=== PATIENT | female | born 1960 | race Caucasian/White ===

== ENCOUNTER 2016-11-14 23:36 | Emergency (ER) | payer OTHER ==
[2016-11-14 23:46] VITALS: BMI 26.6
--- NOTE | 2016-11-15 00:07 | PDOC ---
History of Present Illness - History of Present Illness Initial Comments: 11/15/16 00:42 The patient is a 56 year old female, with a significant past medical history of diabetes (Metformin), GERD, colon polyps, UTI, renal stones, herniated discs, sciatica, and anxiety (Klonopin), who presents to the emergency department with suprapubic pain since this morning. The patient states she woke up feeling sharp pain to her suprapubic region. She reports the pain radiates from her left lower back and feels like a stone. The patient reports hesitancy with urination, stating she feels she needs to push, but denies dysuria. The patient states she though the radiating pain from her back was her sciatica because she also reports experiencing bilateral lower extremity numbness and tingling, predominantly at the lateral aspects of her bilateral hips and feet, which she states is baseline for her sciatica. She denies chest pain, shortness of breath, headache and dizziness. She denies fever, chills, nausea, vomit, diarrhea and constipation. She denies dysuria, frequency, urgency and hematuria. Allergies: NKDA Social history: denies toxic habits PCP - Dr. Pratt ([facility]) <Aleksandra Varma - Last Filed: 11/15/16 00:42> <Joo Lima - Last Filed: 11/15/16 01:51> <Quita Torres - Last Filed: 11/15/16 22:57> - General Chief Complaint: Pain Stated Complaint: ABD PAIN Time Seen by Provider: 11/15/16 00:06 Past History <Aleksandra Varma - Last Filed: 11/15/16 00:42> - Psycho/Social/Smoking Cessation Hx Suicidal Ideation: No Smoking History: Never smoked Have you smoked in the past 12 months: No Information on smoking cessation initiated: No Hx Alcohol Use: No Drug/Substance Use Hx: No <Joo Lima - Last Filed: 11/15/16 01:51> <Quita Torres - Last Filed: 11/15/16 22:57> - Past Medical History Allergies/Adverse Reactions: Allergies Allergy/AdvReac Type Severity Reaction Status Date / Time No Known Allergies Allergy Verified 11/14/16 23:42 Home Medications: Ambulatory Orders Cholecalciferol (Vitamin D3) [Vitamin D -] 1,000 mg PO DAILY 11/15/16 Clonazepam [KlonoPIN] 2 mg PO BID 11/15/16 Duloxetine HCl [Cymbalta] 60 mg PO BID 11/15/16 Fenofibrate Nanocrystallized [Fenofibrate] 145 mg PO DAILY 11/15/16 Metformin HCl 1,000 mg PO DAILY 11/15/16 Nitrofurantoin Monohyd/M-Cryst [Macrobid -] 100 mg PO BID #14 capsule 11/15/16 Ranitidine HCl 150 mg PO BID 11/15/16 Topiramate 25 mg PO DAILY 11/15/16 Review of Systems - Review of Systems Able to Perform ROS?: Yes Comments:: 11/15/16 00:43 CONSTITUTIONAL: No fever, no chills, no fatigue EYES: No visual changes ENT: No ear pain, no sore throat CARDIOVASCULAR: No chest pain, no palpitations RESPIRATORY: No cough, no SOB GI: (+) suprapubic abdominal pain, no nausea, no vomiting, no constipation, no diarrhea GENITOURINARY: (+) Pressure upon urination. Left flank pain. No dysuria, no frequency, no hematuria MUSKULOSKELETAL: No backpain, no joint pain, no myalgias SKIN: No rash NEURO: No headache <Aleksandra Varma - Last Filed: 11/15/16 00:42> *Physical Exam - Vital Signs Last Vital Signs Temp Pulse Resp BP Pulse Ox 98.7 F 94 H 14 154/106 96 11/14/16 23:43 11/14/16 23:43 11/14/16 23:43 11/14/16 23:43 11/14/16 23:43 - Physical Exam Comments: 11/15/16 00:43 CONSTITUTIONAL: Well-appearing; well-nourished; in no apparent distress HEAD: Normocephalic; atraumatic EYES: PERRL; EOM intact ENMT: External appears normal; normal oropharynx NECK: Supple; non-tender; no cervical lymphadenopathy CARD: Normal S1, S2; no murmurs, rubs, or gallops RESP: Normal chest excursion with respiration; breath sounds clear and equal bilaterally; no wheezes, rhonchi, or rales ABD: (+) suprapubic tenderness to palpation. Soft, non-distended; no palpable organomegaly, no palpable hernias; MUSC: No CVA tenderness EXT: Normal ROM in all four extremities; non-tender to palpation; distal pulses intact SKIN: Warm, dry, no rash NEURO: No focal neurological deficiencies. <Aleksandra Varma - Last Filed: 11/15/16 00:42> - Vital Signs Last Vital Signs Temp Pulse Resp BP Pulse Ox 98.7 F 94 H 14 154/106 96 11/14/16 23:43 11/14/16 23:43 11/14/16 23:43 11/14/16 23:43 11/14/16 23:43 <Joo Lima - Last Filed: 11/15/16 01:51> - Vital Signs Last Vital Signs Temp Pulse Resp BP Pulse Ox 97.9 F 77 18 151/88 99 11/15/16 04:35 11/15/16 04:35 11/15/16 04:35 11/15/16 04:35 11/15/16 04:35 <Quita Torres - Last Filed: 11/15/16 22:57> ED Treatment Course - LABORATORY CBC & Chemistry Diagram: 11/15/16 00:30 11/15/16 00:30 <Joo Lima - Last Filed: 11/15/16 01:51> - LABORATORY CBC & Chemistry Diagram: 11/15/16 00:30 11/15/16 00:30 - ADDITIONAL ORDERS Additional order review: Laboratory Results 11/15/16 11/15/16 11/15/16 00:30 00:30 00:30 INR 0.95 Sodium 137 Potassium 4.6 Chloride 106 Carbon Dioxide 20 L Anion Gap 11 BUN 25 H Creatinine 1.2 H Creat Clearance w eGFR 46.82 Random Glucose 180 H Calcium 9.8 Total Bilirubin 0.3 AST 16 ALT 29 Alkaline Phosphatase 137 H Total Protein 7.4 Albumin 4.2 Urine Color Yellow Urine Appearance Clear Urine pH 5.0 Urine Protein Negative Urine Glucose (UA) 3+ H Urine Ketones Trace H Urine Blood 1+ H Urine Nitrite Negative Urine Bilirubin Negative Urine Urobilinogen Negative Ur Leukocyte Esterase Negative Urine RBC 2 Urine WBC <1 Hyaline Casts 3 Urine Mucus Rare 11/15/16 00:30 RBC 4.73 MCV 85.5 MCHC 32.7 RDW 14.3 MPV 10.9 Neutrophils % 90.6 H Lymphocytes % 7.4 L Monocytes % 1.8 L Eosinophils % 0.0 Basophils % 0.2 - Medications Given in the ED: ED Medications Discontinued Medications Generic Name Dose Route Start Last Admin Trade Name Al PRN Reason Stop Dose Admin Sodium Chloride 1,000 mls @ 1,000 mls/hr 11/15/16 00:17 11/15/16 00:53 Normal Saline - IV 11/15/16 01:16 1,000 mls/hr ASDIR STA Administration Morphine Sulfate 4 mg 11/15/16 00:17 11/15/16 00:53 Morphine Injection - IVPUSH 11/15/16 00:18 4 mg ONCE ONE Administration Morphine Sulfate 2 mg 11/15/16 03:02 11/15/16 03:09 Morphine Injection - IVPUSH 11/15/16 03:03 2 mg ONCE ONE Administration <Quita Torres - Last Filed: 11/15/16 22:57> Medical Decision Making - Medical Decision Making 11/15/16 01:51 Patient is well-appearing 56-year-old female with multiple Vladimir's who presents with atraumatic suprapubic and left lower quadrant pain. There is no CVA tenderness. Patient is neurovascularly intact distally to lower extremities bilaterally. Differential diagnoses includes cystitis versus diverticulitis versus pyelonephritis versus nephrolithiasis. CBC shows mild leukocytosis with predominance of neutrophils. CMP is within normal limit. Urinalysis reveals no evidence of microscopic hematuria. Will obtain CT with by mouth contrast only. Will endorse to Dr. torres for final disposition. <Joo Lima - Last Filed: 11/15/16 01:51> - Medical Decision Making 11/15/16 05:06 Patient Name: Ritika Rasmussen THIS IS A PRELIMINARYREPORT FROM IMAGING ENROLLMENT NURSE EXAM: CT abdomen and pelvis without contrast IMAGES: [id number] INDICATION: Left lower quadrant pain. Blood diverticulitis. DATE OF SERVICE: 2016-11-15 04:24: 39.0 COMPARISON: none FINDINGS: Lung bases are clear. The visualized cardiac chambers are normal size and configuration. There is a tiny nonobstructing left renal stone. Normal liver, gallbladder, pancreas, spleen, adrenal glands and right kidney. The stomach and abdominal small and large bowel are normal. A moderate to large amount of diffuse solid stool is noted. There is no aortic aneurysm. There is no significant retroperitoneal lymphadenopathy. The pelvic small and large bowel are normal. The appendix is normal. Status post hysterectomy. Urinary bladder is unremarkable. There is no pelvic free fluid. No discrete pelvic lymphadenopathy is identified. IMPRESSION: Tiny nonenhancing left renal stone. Moderate to large amount of diffuse solid stool. No definite acute pathology. THIS DOCUMENT HAS BEEN ELECTRONICALLY SIGNED 11/15/16 22:56 Pt comes with suprapubic pain; she has multiple comorbidities. CT shows only small renal stones. Her UA is not fully consistent with a UTI, but I will treat a UTI, as she has DM and she has stones, and she has tenderness. So I will treat with a week of macrobid. Pt is anxious and she will be discharged home with her daughter. <Quita Torres - Last Filed: 11/15/16 22:57> *DC/Admit/Observation/Transfer - Attestations Scribe Attestion: 11/15/16 00:45 Documentation prepared by Aleksandra Varma, acting as medical radiation tech for Joo Lima MD <Aleksandra Varma - Last Filed: 11/15/16 00:42> - Attestations Physician Attestion: 11/15/16 01:51 The documentation was prepared by the scribe under my direct supervision. I have reviewed the documentation which correctly represents the findings, medical decision-making and critical action taken by me. <Joo Lima - Last Filed: 11/15/16 01:51> - Discharge Dispostion Admit: No <Quita Torres - Last Filed: 11/15/16 22:57> Diagnosis at time of Disposition: UTI (urinary tract infection), Kidney stones - Discharge Dispostion Disposition: HOME Condition at time of disposition: Stable - Prescriptions Prescriptions: Nitrofurantoin Monohyd/M-Cryst [Macrobid -] 100 mg PO BID #14 capsule - Referrals Referrals: Tc Ngo MD [Primary Care Provider] - - Patient Instructions Printed Discharge Instructions: Urinary Tract Infection, Kidney Stones -- Adult , DI for Constipation
[2016-11-15] MEDS ORDERED: SODIUM CHLORIDE 1,000 ML IV STA (00:17)
[2016-11-15] MEDS ORDERED: morphine CARPU-JECT 4 MG/1 ML DISP.SYRIN IVPUSH ONE (00:17)
[2016-11-15] MEDS ORDERED: morphine CARPU-JECT 4 MG/1 ML DISP.SYRIN ONE (00:42)
[2016-11-15 00:56] LABS: BASOPHIL 0.2 % (0-2.0); MCHC 32.7 g/dl (32.0-36.0); MEAN CELL VOLUME 85.5 fl (80-96); MEAN PLT VOLUME 10.9 fl (7.5-11.1); NEUTROPHILS 90.6 % (42.8-82.8); PLATELET COUNT 206 K/MM3 (134-434); RDW 14.3 % (11.6-15.6); WHITE BLOOD COUNT 12.8 K/mm3 (4.0-10.0)
[2016-11-15 00:59] LABS: URINE APPEARANCE CLEAR; URINE BILIRUBIN NEGATIVE (NEGATIVE); URINE COLOR YELLOW; URINE GLUCOSE (UA) 3+ (NEGATIVE); URINE KETONE TRACE (NEGATIVE); URINE LEUK ESTERASE NEGATIVE (NEGATIVE); URINE NITRITE NEGATIVE (NEGATIVE); URINE PROTEIN NEGATIVE (NEGATIVE); URINE UROBILINOGEN NEGATIVE E.U./dl (0.2-1.0)
[2016-11-15 01:13] LABS: INR 0.95 (0.82-1.09); PROTHROMBIN TIME (PATIENT) 10.4 SEC (9.98-11.88); URINE BLOOD 1+ (NEGATIVE)
[2016-11-15 01:14] LABS: URINE HYALINE CAST 3 /lpf; URINE MUCUS RARE; URINE RBC 2 /hpf (0-3); URINE WBC <1 /hpf (3-5)
[2016-11-15 01:20] LABS: ALBUMIN 4.2 g/dl (3.4-5.0); BILIRUBIN,TOTAL 0.3 mg/dL (0.2-1.0); CALCIUM 9.8 mg/dL (8.5-10.1); COCKROFT - GAULT 61.3955; CREATININE 1.2 mg/dL (0.55-1.02); TOT PROT 7.4 g/dl (6.4-8.2)
[2016-11-15] MEDS ORDERED: morphine CARPU-JECT 2 MG/1 ML DISP.SYRIN IVPUSH ONE (03:02)
[2016-11-15] MEDS ORDERED: morphine CARPU-JECT 2 MG/1 ML DISP.SYRIN ONE ×2 (03:03→03:12)
[2016-11-15 04:47] VITALS: BP 151/88; PULSE 77; TEMP 97.9
[2016-11-15] MEDS ORDERED: KETOROLAC TROMETHAMINE 30 MG/1 ML VIAL IVPUSH ONE (05:40)
[2016-11-15] MEDS ORDERED: NITROFURANTOIN MACROCRYSTAL 50 MG CAPSULE (FP) PO SCH (05:45)
[2016-11-15] MEDS ORDERED: KETOROLAC TROMETHAMINE 30 MG/1 ML VIAL ONE (05:51)
[2016-11-15] MEDS ORDERED: NITROFURANTOIN MACROCRYSTAL 50 MG CAPSULE (FP) ONE (05:52)
== END 2016-11-15 06:07 | disposition home or self-care (01) ==
LOC: JER 23:36
PROC: 3E033NZ Introduction of Analgesics, Hypnotics, Sedatives into Peripheral Vein, Percutaneous Approach (ICD-10-PCS; principal; 2016-11-14)
PROC: 3E0333Z Introduction of Anti-inflammatory into Peripheral Vein, Percutaneous Approach (ICD-10-PCS; 2016-11-14)
PROC: 3E033NZ Introduction of Analgesics, Hypnotics, Sedatives into Peripheral Vein, Percutaneous Approach (ICD-10-PCS; 2016-11-14)
DX: N39.0 Urinary tract infection, site not specified (principal); Z87.442 Personal history of urinary calculi; E11.9 Type 2 diabetes mellitus without complications; Z79.84 Long term (current) use of oral hypoglycemic drugs; F41.9 Anxiety disorder, unspecified; K21.9 Gastro-esophageal reflux disease without esophagitis
CPT/HCPCS: 36415; 74176-TC; 80053; 81003; 81015; 85025; 85610; 87086; 96374; 96375; 99282-25

== ENCOUNTER 2017-08-15 15:33 | Emergency (ER) | payer OTHER ==
[2017-08-15 16:27] VITALS: BMI 27.4
--- NOTE | 2017-08-15 16:45 | PDOC ---
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 She was at her job in [email or web address] and slipped on some perfume behind the counter and did a "split" at which point she feels she "tore something in her left groin" and hurt her neck, lower back, and left leg. She feels as if her sciatic symptoms were acutely exacerbated. Denies any bowel or bladder incontinence but complains of shooting pain down her left leg. Is unsure of any head trauma but did not lose consciousness. She does have a generalized headache. she denies visual symptoms, chest pain, OB, nausea, vomiting, or diarrhea. She is being seen by a pain specialist and wants to fire him because she disagrees regarding her care. She has history of multiple MSK traumas and currently is wearing a brace on her right lower leg. 08/15/17 18:39 <Lv Briones - Last Filed: 08/15/17 18:55> - General Chief Complaint: Injury Stated Complaint: FALL Time Seen by Provider: 08/15/17 16:15 Past History <RicardoNehalwinston Roberts - Last Filed: 08/15/17 17:15> - Past Medical History COPD: No Diabetes: Yes Hypercholesterolemia: Yes - Suicide/Smoking/Psychosocial Hx Smoking History: Former smoker Have you smoked in the past 12 months: No Information on smoking cessation initiated: No Hx Alcohol Use: No Drug/Substance Use Hx: No <Lv Briones - Last Filed: 08/15/17 18:55> - Past Medical History Allergies/Adverse Reactions: Allergies Allergy/AdvReac Type Severity Reaction Status Date / Time epinephrine AdvReac Verified 08/15/17 15:59 Home Medications: Ambulatory Orders Cholecalciferol (Vitamin D3) [Vitamin D -] 1,000 mg PO DAILY 11/15/16 Duloxetine HCl [Cymbalta] 60 mg PO BID 11/15/16 Metformin HCl 1,000 mg PO DAILY 11/15/16 Ranitidine HCl 150 mg PO BID 11/15/16 Topiramate 25 mg PO DAILY 11/15/16 clonazePAM [KlonoPIN] 2 mg PO BID 11/15/16 Ibuprofen 600 mg PO TID PRN #60 tablet MDD 3 01/01/17 Review of Systems - Review of Systems Constitutional: Yes: Weakness. No: Diaphoresis, Fever, Loss of Appetite, Malaise HEENTM: No: Blurred Vision, Tearing Respiratory: No: Cough, Orthopnea, Shortness of Breath, SOB with Exertion Cardiac (ROS): No: Chest Pain, Irregular Heart Rate, Lightheadedness ABD/GI: No: Diarrhea, Nausea, Vomiting : No: Burning, Dysuria, Discharge Musculoskeletal: Yes: Back Pain, Joint Pain, Muscle Pain, Neck Pain Integumentary: No: Bruising, Lesions Neurological: Yes: Headache, Paresthesia Psychiatric: Yes: Anxiety, Frequent Crying, Stressors, Emotional Problems, Mood Swings <Lv Briones - Last Filed: 08/15/17 18:55> *Physical Exam - Vital Signs Last Vital Signs Temp Pulse Resp BP Pulse Ox 98.7 F 81 20 154/107 97 08/15/17 16:00 08/15/17 16:00 08/15/17 16:00 08/15/17 16:00 08/15/17 16:00 <Nehal Silva - Last Filed: 08/15/17 17:15> - Vital Signs Last Vital Signs Temp Pulse Resp BP Pulse Ox 98.7 F 81 20 154/107 97 08/15/17 16:00 08/15/17 16:00 08/15/17 16:00 08/15/17 16:00 08/15/17 16:00 - Physical Exam General Appearance: Yes: Nourished, Appropriately Dressed, Apparent Distress, Mild Distress HEENT: positive: EOMI, RICH, Normal ENT Inspection, Normal Voice, Symmetrical Neck: positive: Other (In C collar because of neck pain after the fall) Respiratory/Chest: positive: Lungs Clear, Normal Breath Sounds. negative: Chest Tender, Respiratory Distress, Accessory Muscle Use Cardiovascular: positive: Regular Rhythm, Regular Rate Gastrointestinal/Abdominal: positive: Normal Bowel Sounds, Flat, Soft. negative : Tender Musculoskeletal: positive: Decreased Range of Motion (Decreased active range of motion in the left leg becaue of her pain but full active range of motion without pain. Full ROM of right leg. ), Vertebral Tenderness (Tender in L spine , S pine, and C spine). negative: Normal Inspection <Lv Briones - Last Filed: 08/15/17 18:55> ED Treatment Course - Medications Given in the ED: ED Medications Discontinued Medications Generic Name Dose Route Start Last Admin Trade Name Al PRN Reason Stop Dose Admin Ketorolac Tromethamine 30 mg 08/15/17 16:51 08/15/17 17:12 Toradol Injection - IVPUSH 08/15/17 16:52 Not Given ONCE ONE Ketorolac Tromethamine 60 mg 08/15/17 17:07 08/15/17 17:13 Toradol Injection - IM 08/15/17 17:08 60 mg ONCE ONE Administration <Nehal Silva - Last Filed: 08/15/17 17:15> Medical Decision Making - Medical Decision Making 57 year old with diverse history of MSK trauma, anxiety, and chronic pain presenting gs/p fall. Patient continuously was tearful about her situation but her pain seemingly resolved during deep conversation. 60 IM toradol given but patient still complaining of pain in her leg and lower back. CTs performed an depending X ray. Patient signed out to Dr. Rosenthal pending official film upload and review. No gross MSK deviation noted so fracture not likely. Pain control with this patient will be difficult because of anxiety and chronic roca disorder. However, lack of saddle anesthesia or incontinence is reassuring. 08/15/17 18:52 <Lv Briones - Last Filed: 08/15/17 18:55>
[2017-08-15] MEDS ORDERED: KETOROLAC TROMETHAMINE 30 MG/1 ML VIAL IVPUSH ONE (16:51)
[2017-08-15] MEDS ORDERED: KETOROLAC TROMETHAMINE 60 MG/2 ML VIAL IM ONE (17:07)
[2017-08-15] MEDS ORDERED: KETOROLAC TROMETHAMINE 60 MG/2 ML VIAL ONE (17:08)
--- NOTE | 2017-08-15 17:17 | PDOC ---
Attending Attestation - Resident Resident Name: AnselmoAmiekomal - ED Attending Attestation I have performed the following: I have examined & evaluated the patient, The case was reviewed & discussed with the resident, I agree w/resident's findings & plan, Exceptions are as noted - HPI HPI: 08/15/17 17:15 57 yo female p/w neck pain and low back pain after mechanical fall. PMH anxiety, chronic pain - Physicial Exam PE: 08/15/17 19:37 57-year-old female complaining of neck and back pain head no scalp laceration,no hematomas neck trapezius muscle tenderness lungs cta b/l cvs [id number] abd nontender ext no e/c/c musculoskeletal no thoracic or lumbar vertebral tenderness neuro axox3,no gross focal neuro deficits psych anxious - Medical Decision Making 08/16/17 01:55 ct scan head no acute intracranial pathology ct c spine no fracture,no subluxation,DJD pt eloped
[2017-08-15] MEDS ORDERED: LORazepam 1 MG TABLET PO ONE (17:43)
[2017-08-15] MEDS ORDERED: CYCLOBENZAPRINE HCL 10 MG TABLET (FP) PO ONE (17:44)
--- NOTE | 2017-08-15 18:59 | PDOC ---
*Physical Exam - Vital Signs Last Vital Signs Temp Pulse Resp BP Pulse Ox 98.7 F 81 20 154/107 97 08/15/17 16:00 08/15/17 16:00 08/15/17 16:00 08/15/17 16:00 08/15/17 16:00 ED Treatment Course - Medications Given in the ED: ED Medications Discontinued Medications Generic Name Dose Route Start Last Admin Trade Name Al PRN Reason Stop Dose Admin Ketorolac Tromethamine 30 mg 08/15/17 16:51 08/15/17 17:12 Toradol Injection - IVPUSH 08/15/17 16:52 Not Given ONCE ONE Ketorolac Tromethamine 60 mg 08/15/17 17:07 08/15/17 17:13 Toradol Injection - IM 08/15/17 17:08 60 mg ONCE ONE Administration Medical Decision Making - Medical Decision Making 08/15/17 18:57 Pt signed out to me by Dr. Briones, day team. The patient is a 57F with a PMH of DM, HLD, anxiety, and depression who presents s/p fall. Given toradol for pain control IM. Pending CT and XR images plus reads. 08/15/17 20:19 Pt is being verbally abusive to staff and myself. Pt wants to leave, refused to sign AMA, and eloped. All imaging read as negative for acute pathology. *DC/Admit/Observation/Transfer Diagnosis at time of Disposition: Eloped - Discharge Dispostion Disposition: ELOPED Condition at time of disposition: Stable - Referrals - Patient Instructions - Post Discharge Activity
[2017-08-15] MEDS ORDERED: CYCLOBENZAPRINE HCL 10 MG TABLET (FP) ONE (19:23)
[2017-08-15 20:02] VITALS: BP 138/92; PULSE 76; TEMP 98.1
== END 2017-08-15 20:05 | disposition left against medical advice (07) ==
LOC: JER 15:33
PROC: 3E0233Z Introduction of Anti-inflammatory into Muscle, Percutaneous Approach (ICD-10-PCS; principal; 2017-08-15)
DX: M54.2 Cervicalgia (principal); W01.0XXA Fall on same level from slipping, tripping and stumbling without subsequent striking against object, initial encounter; Y93.89 Activity, other specified; Y92.513 Shop (commercial) as the place of occurrence of the external cause; Y99.8 Other external cause status; E11.9 Type 2 diabetes mellitus without complications; Z79.84 Long term (current) use of oral hypoglycemic drugs; K21.9 Gastro-esophageal reflux disease without esophagitis; F41.9 Anxiety disorder, unspecified; E78.00 Pure hypercholesterolemia, unspecified; Z87.891 Personal history of nicotine dependence; Z86.010 Personal history of colon polyps
CPT/HCPCS: 70450-TC; 72100-TC-FY; 72125-TC; 73523-TC-FY; 73560-TC-LT-FY; 99282-25

== ENCOUNTER 2017-12-21 12:48 | Day surgery (SDC) | payer OTHER ==
[2017-12-21 13:16] VITALS: BMI 27.4
[2017-12-21] MEDS ORDERED: KETOROLAC TROMETHAMINE 30 MG/1 ML VIAL ONE (14:10)
[2017-12-21] MEDS ORDERED: DEXAMETHASONE SOD PHOSPHATE 4 MG/1 ML VIAL ONE (14:12)
[2017-12-21] MEDS ORDERED: LIDOCAINE HCL/PF 2% SDV 5ML VIAL ONE (14:13)
[2017-12-21] MEDS ORDERED: PROPOFOL 20 ML ONE (14:13)
[2017-12-21] MEDS ORDERED: BUPIVACAINE HCL/PF 0.25% (2.5MG/ML) 10 ML VIAL IJ ONE ×2 (14:16→14:24)
[2017-12-21] MEDS ORDERED: IOHEXOL 180 MG/1 ML ML IJ ONE ×2 (14:16→14:24)
[2017-12-21] MEDS ORDERED: DEXAMETHASONE SOD PHOSPHATE 4 MG/1 ML VIAL NR ONE ×2 (14:16→14:24)
[2017-12-21] MEDS ORDERED: LIDOCAINE HCL 1%, 10 MG/ML (50 mL VIAL) IJ ONE (14:16)
[2017-12-21] MEDS ORDERED: BUPIVACAINE HCL/PF 0.25% (2.5MG/ML) 10 ML VIAL ONE (15:05)
[2017-12-21] MEDS ORDERED: LIDOCAINE HCL 1%, 10 MG/ML (20ML VIAL) ONE (15:05)
[2017-12-21 18:07] VITALS: BP 148/86; PULSE 73
== END 2017-12-21 18:00 | disposition home or self-care (01) ==
LOC: JASU-SURG 12:48
PROVIDERS: ATTEND Physical Medicine & Rehabilitation
PROC: 3E0T33Z Introduction of Anti-inflammatory into Peripheral Nerves and Plexi, Percutaneous Approach (ICD-10-PCS; 2017-12-21)
PROC: BR14YZZ Fluoroscopy of Cervical Facet Joint(s) using Other Contrast (ICD-10-PCS; 2017-12-21)
PROC: 3E0T3BZ Introduction of Anesthetic Agent into Peripheral Nerves and Plexi, Percutaneous Approach (ICD-10-PCS; principal; 2017-12-21 15:30)
DX: M47.892 Other spondylosis, cervical region (principal); M46.82 Other specified inflammatory spondylopathies, cervical region; M54.2 Cervicalgia
CPT/HCPCS: 76000-TC-FY

== ENCOUNTER 2018-01-18 10:40 | Day surgery (SDC) | payer OTHER ==
[2018-01-17 14:44] VITALS: BMI 26.6
[2018-01-18 11:46] VITALS: TEMP 98
[2018-01-18] MEDS ORDERED: LIDOCAINE HCL 1%, 10 MG/ML (50 mL VIAL) IJ ONE (12:40)
[2018-01-18] MEDS ORDERED: BUPIVACAINE HCL/PF 0.25% (2.5MG/ML) 10 ML VIAL IJ ONE (12:41)
[2018-01-18] MEDS ORDERED: IOHEXOL 180 MG/1 ML ML IJ ONE (12:41)
[2018-01-18] MEDS ORDERED: BETAMET ACET/BETAMET NA PH 30 MG/5 ML VIAL IJ ONE (12:43)
[2018-01-18] MEDS ORDERED: BETAMET ACET/BETAMET NA PH 30 MG/5 ML VIAL ONE (13:04)
[2018-01-18] MEDS ORDERED: LIDOCAINE HCL 1%, 10 MG/ML (20ML VIAL) ONE (13:04)
[2018-01-18] MEDS ORDERED: BUPIVACAINE HCL/PF 0.25% (2.5MG/ML) 10 ML VIAL ONE (13:04)
[2018-01-18 16:06] VITALS: BP 147/80; PULSE 84
== END 2018-01-18 15:50 | disposition home or self-care (01) ==
LOC: JASU-SURG 10:40
PROVIDERS: ATTEND Physical Medicine & Rehabilitation
PROC: 3E0T33Z Introduction of Anti-inflammatory into Peripheral Nerves and Plexi, Percutaneous Approach (ICD-10-PCS; 2018-01-18)
PROC: BR16YZZ Fluoroscopy of Lumbar Facet Joint(s) using Other Contrast (ICD-10-PCS; 2018-01-18)
PROC: 3E0T3BZ Introduction of Anesthetic Agent into Peripheral Nerves and Plexi, Percutaneous Approach (ICD-10-PCS; principal; 2018-01-18 11:30)
DX: M46.86 Other specified inflammatory spondylopathies, lumbar region (principal); M54.5 Low back pain
CPT/HCPCS: 76000-TC-FY

== ENCOUNTER 2021-09-19 12:03 | Inpatient (IN) | payer OTHER ==
[2021-09-19] MEDS ORDERED: clonazePAM 2 MG TABLET PO ONE (13:00)
[2021-09-19] MEDS ORDERED: clonazePAM 0.5 MG TABLET ONE ×2 (13:41→19:42)
[2021-09-19 14:54] LABS: BASO % 0.3 % (0-2.0); HEMATOCRIT 39.2 % (32.4-45.2); HEMOGLOBIN 12.8 GM/dL (10.7-15.3); LYMPH % 11.3 % (8-40); MCH 25.9 pg (25.7-33.7); MCHC 32.6 g/dl (32.0-36.0); MEAN CELL VOLUME 79.5 fl (80-96); MEAN PLT VOLUME 10.9 fl (7.5-11.1); MONO % 4.4 % (3.8-10.2); PLATELET COUNT 215 10^3/uL (134-434); RBC 4.93 M/mm3 (3.60-5.2); RDW 15.7 % (11.6-15.6); WHITE BLOOD COUNT 14.4 K/mm3 (4.0-10.0)
[2021-09-19 15:18] LABS: CALCIUM 11.9 mg/dL (8.5-10.1)
[2021-09-19 15:19] LABS: ALBUMIN 4.6 g/dl (3.4-5.0); BLOOD UREA NITROGEN 46.1 mg/dL (7-18); MAGNESIUM 2.2 mg/dL (1.8-2.4)
[2021-09-19 15:22] LABS: CREATININE 1.1 mg/dL (0.55-1.3)
[2021-09-19 15:23] LABS: PHOSPHOROUS 3.9 mg/dL (2.5-4.9); TOT PROT 7.9 g/dl (6.4-8.2)
[2021-09-19 15:24] LABS: BILIRUBIN,TOTAL 0.7 mg/dL (0.2-1)
[2021-09-19] MEDS ORDERED: ACETAMINOPHEN 325 MG TABLET (FP) PO ONE (15:26)
[2021-09-19] MEDS ORDERED: ACETAMINOPHEN 325 MG TABLET (FP) ONE ×2 (15:28→15:59)
[2021-09-19] MEDS ORDERED: KETOROLAC TROMETHAMINE 30 MG/1 ML VIAL IVPUSH ONE (15:49)
[2021-09-19] MEDS ORDERED: KETOROLAC TROMETHAMINE 30 MG/1 ML VIAL ONE (15:59)
[2021-09-19 16:32] LABS: EPI CELLS 12 /uL (0-25.1); HYALINE CASTS 7 /uL (0-3.1); URINE APPEARANCE CLEAR; URINE BACTERIA 3 /uL (0-1359); URINE BILIRUBIN NEGATIVE (NEGATIVE); URINE COLOR DK YELLOW; URINE GLUCOSE (UA) NEGATIVE (NEGATIVE); URINE KETONE TRACE (NEGATIVE); URINE LEUK ESTERASE NEGATIVE (NEGATIVE); URINE NITRITE NEGATIVE (NEGATIVE); URINE PROTEIN 1+ (NEGATIVE); URINE RBC 18 /uL (0-23.9); URINE WBC 10 /uL (0-25.8)
[2021-09-19] MEDS: SODIUM CHLORIDE 1,000 ML IV SCH (18:45)
[2021-09-19] MEDS ORDERED: clonazePAM 0.5 MG TABLET PO ONE (19:32)
[2021-09-19] MEDS ORDERED: LORazepam 1 MG TABLET ONE (19:34)
[2021-09-19 20:16] LABS: URINE CRYSTALS FEW /hpf
[2021-09-19] MEDS ORDERED: methaDONE HCL 10 MG TABLET PO ONE (21:45)
[2021-09-19] MEDS: clonazePAM 2 MG TABLET PO SCH (21:56)
[2021-09-19] MEDS: GABAPENTIN 300 MG CAPSULE PO SCH (21:56)
[2021-09-19] MEDS ORDERED: HEPARIN NA (PORCINE) 5,000 UNITS/ML 1ML VIAL SQ SCH (22:00)
[2021-09-19 22:49] VITALS: BMI 22.8
[2021-09-20] MEDS: INSULIN SLIDING SCALE (NOVOLOG) 1 VIAL SQ SCH ×5 (06:07→22:39)
[2021-09-20] MEDS ORDERED: INSULIN SLIDING SCALE (NOVOLOG) 1 VIAL SQ SCH (07:00)
[2021-09-20] MEDS ORDERED: methaDONE HCL 10 MG TABLET ONE (08:27)
[2021-09-20] MEDS: FAMOTIDINE 10 MG TABLET PO SCH ×2 (08:35→11:20)
[2021-09-20] MEDS: clonazePAM 2 MG TABLET PO SCH ×3 (08:35→21:31)
[2021-09-20] MEDS ORDERED: amLODIPine BESYLATE 5 MG TABLET (FP) PO SCH (10:00)
[2021-09-20] MEDS: ENOXAPARIN NA (PORCINE) 40 MG/0.4 ML DISP.SYRIN SQ SCH (11:29)
[2021-09-20] MEDS: GABAPENTIN 300 MG CAPSULE PO SCH ×7 (11:32→22:25)
[2021-09-20 12:51] LABS: BASO % 0.3 % (0-2.0); EOS % 0.1 % (0-4.5); HEMATOCRIT 35.1 % (32.4-45.2); HEMOGLOBIN 11.5 GM/dL (10.7-15.3); LYMPH % 10.8 % (8-40); MCHC 32.8 g/dl (32.0-36.0); MEAN CELL VOLUME 79.4 fl (80-96); MEAN PLT VOLUME 10.5 fl (7.5-11.1); MONO % 4.5 % (3.8-10.2); NEUT % 84.3 % (42.8-82.8); PLATELET COUNT 183 10^3/uL (134-434); RBC 4.42 M/mm3 (3.60-5.2); WHITE BLOOD COUNT 10.3 K/mm3 (4.0-10.0)
[2021-09-20 13:00] LABS: INR 1.15 (0.83-1.09); PROTHROMBIN TIME (PATIENT) 13.3 SEC (9.7-13.0)
[2021-09-20 13:03] LABS: ACTIVATED PTT 31.5 SECONDS (25.2-36.5)
[2021-09-20 13:23] LABS: ALBUMIN 3.8 g/dl (3.4-5.0); BILIRUBIN,DIRECT 0.2 mg/dL (0.0-0.2); BLOOD UREA NITROGEN 31.3 mg/dL (7-18)
[2021-09-20 13:24] LABS: BILIRUBIN,TOTAL 0.8 mg/dL (0.2-1); TOT PROT 6.4 g/dl (6.4-8.2)
[2021-09-20 13:27] LABS: CREATININE 0.5 mg/dL (0.55-1.3)
[2021-09-20 13:28] LABS: BILIRUBIN,TOTAL 0.7 mg/dL (0.2-1); TOT PROT 6.4 g/dl (6.4-8.2)
[2021-09-20 13:33] LABS: ALBUMIN 3.6 g/dl (3.4-5.0)
[2021-09-20 13:34] LABS: CALCIUM 9.7 mg/dL (8.5-10.1)
[2021-09-20 15:37] LABS: COCAINE, UR NEGATIVE (NEGATIVE); OPIATES, URI NEGATIVE (NEGATIVE)
[2021-09-20 15:38] LABS: METHADONE, UR POSITIVE (NEGATIVE); PHENCYCLIDINE,URINE NEGATIVE (NEGATIVE); URINE AMPHETAMINES NEGATIVE (NEGATIVE); URINE BARBITURATES NEGATIVE (NEGATIVE); URINE BENZODIAZEPINES POSITIVE (NEGATIVE)
[2021-09-20] MEDS ORDERED: KETOROLAC TROMETHAMINE 10 MG TABLET PO ONE (17:43)
[2021-09-20] MEDS: SODIUM CHLORIDE 1,000 ML IV SCH ×2 (18:22→22:27)
[2021-09-20] MEDS ORDERED: KETOROLAC TROMETHAMINE 15 MG/ML VIAL IVPUSH ONE (22:16)
[2021-09-21] MEDS: INSULIN SLIDING SCALE (NOVOLOG) 1 VIAL SQ SCH ×4 (06:40→21:29)
[2021-09-21] MEDS ORDERED: methaDONE HCL 10 MG TABLET PO ONE (07:00)
[2021-09-21 08:46] LABS: INR 1.1 (0.83-1.09); PROTHROMBIN TIME (PATIENT) 12.7 SEC (9.7-13.0)
[2021-09-21 08:47] LABS: BASO % 0.3 % (0-2.0); EOS % 1.8 % (0-4.5); HEMATOCRIT 32.4 % (32.4-45.2); HEMOGLOBIN 10.6 GM/dL (10.7-15.3); LYMPH % 21.2 % (8-40); MCH 26.1 pg (25.7-33.7); MCHC 32.8 g/dl (32.0-36.0); MEAN CELL VOLUME 79.4 fl (80-96); MEAN PLT VOLUME 10.2 fl (7.5-11.1); MONO % 7.4 % (3.8-10.2); NEUT % 69.3 % (42.8-82.8); PLATELET COUNT 149 10^3/uL (134-434); RBC 4.08 M/mm3 (3.60-5.2); RDW 15.8 % (11.6-15.6); WHITE BLOOD COUNT 7.3 K/mm3 (4.0-10.0)
[2021-09-21 08:55] LABS: ALBUMIN 3.2 g/dl (3.4-5.0); BLOOD UREA NITROGEN 12.4 mg/dL (7-18)
[2021-09-21 08:58] LABS: CREATININE 0.5 mg/dL (0.55-1.3)
[2021-09-21 08:59] LABS: BILIRUBIN,TOTAL 0.7 mg/dL (0.2-1); TOT PROT 6.1 g/dl (6.4-8.2)
[2021-09-21] MEDS: ENOXAPARIN NA (PORCINE) 40 MG/0.4 ML DISP.SYRIN SQ SCH (10:17)
[2021-09-21] MEDS: clonazePAM 2 MG TABLET PO SCH ×2 (10:17→18:31)
[2021-09-21] MEDS: FAMOTIDINE 10 MG TABLET PO SCH (10:17)
[2021-09-21] MEDS: GABAPENTIN 300 MG CAPSULE PO SCH ×5 (10:19→21:24)
[2021-09-21] MEDS ORDERED: clonazePAM 2 MG TABLET PO ONE (13:18)
[2021-09-21] MEDS: SODIUM CHLORIDE 1,000 ML IV SCH (18:27)
[2021-09-21] MEDS ORDERED: KETOROLAC TROMETHAMINE 15 MG/ML VIAL IVPUSH ONE (19:07)
[2021-09-22] MEDS ORDERED: methaDONE HCL 10 MG TABLET ONE (06:16)
[2021-09-22] MEDS: clonazePAM 2 MG TABLET PO SCH ×2 (06:21→20:21)
[2021-09-22] MEDS: INSULIN SLIDING SCALE (NOVOLOG) 1 VIAL SQ SCH ×4 (06:24→21:26)
[2021-09-22] MEDS: GABAPENTIN 300 MG CAPSULE PO SCH ×4 (10:53→21:22)
[2021-09-22 11:57] LABS: BASO % 0.2 % (0-2.0); EOS % 1.6 % (0-4.5); HEMATOCRIT 38.5 % (32.4-45.2); HEMOGLOBIN 12.7 GM/dL (10.7-15.3); LYMPH % 16.1 % (8-40); MCH 26.4 pg (25.7-33.7); MCHC 33.1 g/dl (32.0-36.0); MEAN CELL VOLUME 79.7 fl (80-96); MEAN PLT VOLUME 10.4 fl (7.5-11.1); MONO % 6.3 % (3.8-10.2); NEUT % 75.8 % (42.8-82.8); PLATELET COUNT 175 10^3/uL (134-434); RBC 4.83 M/mm3 (3.60-5.2); WHITE BLOOD COUNT 6.5 K/mm3 (4.0-10.0)
[2021-09-22 11:58] LABS: BLOOD UREA NITROGEN 13.7 mg/dL (7-18); MAGNESIUM 2.2 mg/dL (1.8-2.4)
[2021-09-22 12:01] LABS: CREATININE 0.7 mg/dL (0.55-1.3)
[2021-09-22 12:02] LABS: BILIRUBIN,TOTAL 0.8 mg/dL (0.2-1); TOT PROT 7.2 g/dl (6.4-8.2)
[2021-09-22 12:15] LABS: ALBUMIN 4.1 g/dl (3.4-5.0); CALCIUM 10.6 mg/dL (8.5-10.1)
[2021-09-22] MEDS: ENOXAPARIN NA (PORCINE) 40 MG/0.4 ML DISP.SYRIN SQ SCH (12:42)
[2021-09-22] MEDS: FAMOTIDINE 10 MG TABLET PO SCH (12:43)
[2021-09-22] MEDS ORDERED: clonazePAM 0.5 MG TABLET PO ONE (12:45)
[2021-09-22 13:16] LABS: INR 1.07 (0.83-1.09); PROTHROMBIN TIME (PATIENT) 12.3 SEC (9.7-13.0)
[2021-09-22] MEDS ORDERED: KETOROLAC TROMETHAMINE 10 MG TABLET PO ONE (14:59)
[2021-09-22] MEDS: SODIUM CHLORIDE 1,000 ML IV SCH (17:25)
[2021-09-23] MEDS: clonazePAM 2 MG TABLET PO SCH (06:24)
[2021-09-23] MEDS: INSULIN SLIDING SCALE (NOVOLOG) 1 VIAL SQ SCH ×2 (06:25→11:15)
[2021-09-23] MEDS ORDERED: methaDONE HCL 10 MG TABLET PO ONE (07:00)
[2021-09-23] MEDS: GABAPENTIN 300 MG CAPSULE PO SCH ×2 (09:56→16:04)
[2021-09-23] MEDS: ENOXAPARIN NA (PORCINE) 40 MG/0.4 ML DISP.SYRIN SQ SCH (09:57)
[2021-09-23 11:05] LABS: BASO % 0.3 % (0-2.0); EOS % 0.6 % (0-4.5); HEMATOCRIT 38.9 % (32.4-45.2); HEMOGLOBIN 12.8 GM/dL (10.7-15.3); LYMPH % 19.1 % (8-40); MCH 26.2 pg (25.7-33.7); MEAN CELL VOLUME 79.5 fl (80-96); MEAN PLT VOLUME 10.2 fl (7.5-11.1); MONO % 7.2 % (3.8-10.2); NEUT % 72.8 % (42.8-82.8); PLATELET COUNT 215 10^3/uL (134-434); RBC 4.89 M/mm3 (3.60-5.2); RDW 15.7 % (11.6-15.6); WHITE BLOOD COUNT 7.5 K/mm3 (4.0-10.0)
[2021-09-23] MEDS ORDERED: KETOROLAC TROMETHAMINE 30 MG/1 ML VIAL IVPB ONE (11:17)
[2021-09-23 12:56] VITALS: BP 138/90; PULSE 74; TEMP 98.7
[2021-09-23 16:01] LABS: ALBUMIN 4.2 g/dl (3.4-5.0)
[2021-09-23 16:03] LABS: BILIRUBIN,DIRECT 0.3 mg/dL (0.0-0.2)
[2021-09-23 16:05] LABS: BILIRUBIN,TOTAL 0.8 mg/dL (0.2-1)
[2021-09-23 16:06] LABS: TOT PROT 7.6 g/dl (6.4-8.2)
== END 2021-09-23 16:40 | disposition home or self-care (01) | DRG 897 ==
LOC: JER 12:03 → JERBED 17:15 → J7W 20:18
PROVIDERS: ADMIT Internal Medicine; ATTEND Nurse Practitioner Acute Care
DX: F11.23 Opioid dependence with withdrawal (principal); F13.239 Sedative, hypnotic or anxiolytic dependence with withdrawal, unspecified; E11.9 Type 2 diabetes mellitus without complications; K76.0 Fatty (change of) liver, not elsewhere classified; K21.9 Gastro-esophageal reflux disease without esophagitis; R45.1 Restlessness and agitation; G89.29 Other chronic pain; F41.8 Other specified anxiety disorders; R74.01 Elevation of levels of liver transaminase levels; M21.371 Foot drop, right foot; E83.52 Hypercalcemia
CPT/HCPCS: 36415; 71045-TC-FY; 76705-TC; 80053; 80076; 80307; 81003; 82550; 82728; 82962; 83540; 83550; 83735; 83970; 84100; 84484; 85025; 85610; 85730; 86704; 86705; 86803; 87040; 87086; 87340; 87517; 93005; 93010; 97116-GP; 97161-GP; 99285-25; C9803-CS; U0003; U0005